=== PATIENT | male | born 1975 | race Caucasian/White ===

== ENCOUNTER → 2020-11-02 | Outpatient (CLI) | payer OTHER | LOC: KOH-I 10:38 | DX: Z13.83 Encounter for screening for respiratory disorder NEC (principal); Z77.29 Contact with and (suspected) exposure to other hazardous substances | CPT/HCPCS: 71046 ==

== ENCOUNTER → 2021-07-17 | Emergency (ER) | payer BC | END | disposition left against medical advice (07) | LOC: ER1 22:15 | DX: Z53.21 Procedure and treatment not carried out due to patient leaving prior to being seen by health care provider (principal) ==